=== PATIENT | male | born 1940 | race Caucasian/White ===

== ENCOUNTER 2016-10-02 11:54 | Observation (INO) | payer MEDICARE ==
--- NOTE | 2016-10-02 13:05 | ED Physician Documentation ---
PD HPI FOCAL NEURO - Stated complaint Stated Complaint: MEMORY LOSS/TROUBLE SPEAKING - Chief complaint Chief Complaint: Neuro - History obtained from History obtained from: Patient, Family - History of Present Illness Timing - onset: How many hours ago (3) Timing - duration: Minutes (30) Timing - details: Abrupt onset Severity of deficit: Moderate Weakness: No: Face, Arm, Hand, Leg, Foot, Right, Left Numbness: No: Face, Arm, Hand, Leg, Foot, Right, Left Associated symptoms: No: Headache, Nausea / vomiting, Seizure, Syncope, Fall, Head injury, Chest pain, Neck pain, Back pain, Fever Contributing factors: positive: Atrial fibrillation. negative: Anticoagulated Baseline status: positive: A&OX3, ambulatory, indep Similar symptoms before: Has not had sx before Recently seen: Not recently seen - Additional information Additional information: 30 mins of garbled speech today. Now resolved. Review of Systems Ten Systems: 10 systems reviewed and negative Constitutional: denies: Fever, Chills Eyes: reports: Decreased vision (macular degeneration) Nose: denies: Rhinorrhea / runny nose, Congestion Throat: denies: Sore throat Cardiac: denies: Chest pain / pressure Respiratory: denies: Dyspnea, Cough, Wheezing GI: denies: Abdominal Pain, Nausea, Vomiting, Diarrhea Skin: denies: Rash Musculoskeletal: denies: Neck pain, Back pain Neurologic: denies: Headache PD PAST MEDICAL HISTORY - Past Medical History Cardiovascular: Atrial fibrillation HEENT: Other - Past Surgical History Past Surgical History: Yes Derm: Skin cancer surgery - Present Medications Home Medications: Ambulatory Orders Medication Instructions Recorded Confirmed Aspirin [Aspir 81] 81 mg PO DAILY 01/16/14 10/02/16 - Allergies Allergies/Adverse Reactions: Allergies Allergy/AdvReac Type Severity Reaction Status Date / Time amoxicillin Allergy Rash Verified 10/02/16 12:00 Penicillins Allergy Rash Verified 10/02/16 12:00 - Social History Does the pt smoke?: No Smoking Status: Never smoker Does the pt drink ETOH?: Yes Does the pt have substance abuse?: No - Immunizations Immunizations are current?: Yes Immunizations: TDAP current <10years - POLST Patient has POLST: No PD ED PE NORMAL - Vitals Vital signs reviewed: Yes - General General: Alert and oriented X 3, No acute distress, Well developed/nourished - HEENT HEENT: Moist mucous membranes - Neck Neck: Supple, no meningeal sign - Cardiac Cardiac: RRR, Strong equal pulses - Respiratory Respiratory: No respiratory distress, Clear bilaterally - Abdomen Abdomen: Soft, Non tender, Non distended - Back Back: No spinal TTP - Derm Derm: Warm and dry - Extremities Extremities: No edema - Neuro Neuro: Alert and oriented X 3, forest patrolman 2-12 intact, No motor deficit, No sensory deficit, Normal speech - Psych Psych: Normal mood, Normal affect NIHSS - Time Time: 13:00 - Level of Consciousness Level of consciousness: (0) Alert, Keenly responsive LOC Questions: (0) Answers both Q's correct LOC Commands: (0) Performs both correctly - Gaze Best Gaze: (0) Normal - Visual Visual: (0) No loss - Facial Palsy Facial Palsy: (0) Normal, symmetrical movement - Motor Arms (both separate) Motor Arm (right): (0) No drift Motor Arm (left): (0) No drift - Motor Legs (both separate) Motor Leg (right): (0) No drift Motor Leg (left): (0) No drift - Limb Ataxia Limb Ataxia: (0) Absent - Sensory Sensory: (0) Normal - Best Language Best Language: (0) No aphasia - Dysarthria Dysarthria: (0) Normal - Extinction and Inattention (formally neg Extinction and inattention: (0) No abnormality - Total Score/Results Total Score/Result: 0 Results - Vitals Vitals: Vital Signs - 24 hr 10/02/16 10/02/16 11:56 14:00 Temperature 36.2 C L Heart Rate 101 H 88 Respiratory 19 20 Rate Blood Pressure 179/90 H 136/88 H O2 Saturation 100 97 Oxygen O2 Source Room air - EKG (time done) 1230 Rate: Rate (enter#) (86) Rhythm: Atrial fibrillation [place]: Normal Ischemia: Normal ST segments - Labs Labs: Laboratory Tests 10/02/16 13:55 Urine Color YELLOW Urine Clarity CLEAR Urine pH 6.0 Ur Specific [place] <=1.005 Urine Protein NEGATIVE Urine Glucose (UA) NEGATIVE Urine Ketones NEGATIVE Urine Occult Blood NEGATIVE Urine Nitrite NEGATIVE Urine Bilirubin NEGATIVE Urine Urobilinogen 0.2 (NORMAL) Ur Leukocyte Esterase NEGATIVE Ur Microscopic Review NOT INDICATED Urine Culture Comments NOT INDICATED - Rads (name of study) head w/o CT Radiology: Prelim report reviewed, EMP read contemporaneously, See rad report ( No evidence of an intracranial hemorrhage. Redemonstration of age-appropriate atrophy. Mild decrease density in the periventricular white matter that is nonspecific but most likely represents ischemic changes. ) PD MEDICAL DECISION MAKING - ED course Complexity details: reviewed results, re-evaluated patient, considered differential, d/w patient, d/w internal control consultant ED course: Patient is a 76-year-old male with a history of atrial fibrillation who presents to the emergency department with what appears to be a TIA today. Symptoms have fully resolved. He is only on a baby aspirin daily. Will place the patient in observation for further testing including imaging of the carotids , possible echocardiogram and likely MRI. Discussed the case with Dr. Cobian, hospitalist who accepts. This document was made in part using voice recognition software. While efforts are made to proofread this document, sound alike and grammatical errors may occur. Departure - Departure Disposition: ED Place in Observation Clinical Impression: TIA (transient ischemic attack) Qualifiers: Transient cerebral ischemia type: unspecified Qualified Code(s): G45.9 - Transient cerebral ischemic attack, unspecified Condition: Good
--- NOTE | 2016-10-02 13:53 | CT Preliminary Report ---
Exam: CT Head W/O Impression: No evidence of an intracranial hemorrhage. Redemonstration of age-appropriate atrophy. Mild decrease density in the periventricular white matter that is nonspecific but most likely represe nts ischemic changes. [facility] SITE ID: [id number]
--- NOTE | 2016-10-02 13:55 | CT Report ---
EXAM: CT HEAD EXAM DATE: 10/02/2016 01:31 PM. CLINICAL HISTORY: Aphasia. COMPARISON: 02/28/2013. TECHNIQUE: Multiaxial CT images were obtained from the foramen magnum to the vertex. IV contrast: Non e. Reformats: Coronal. In accordance with CT protocol optimization, one or more of the following dose reduction techniques w ere utilized for this exam: automated exposure control, adjustment of mA and/or KV based on patient s ize, or use of iterative reconstructive technique. FINDINGS: The ventricles and cortical sulci are prominent age appropriate atrophy. Decreased density noted in t he periventricular white matter most likely represents ischemic changes. There is no evidence of a in traparenchymal hemorrhage or extra-axial fluid collection. The visualized mastoid air cells and paran darby sinuses are clear. No depressed skull fracture is seen. Impression: No evidence of an intracranial hemorrhage. Redemonstration of age-appropriate atrophy. Mild decrease density in the periventricular white matter that is nonspecific but most likely represe nts ischemic changes. [facility] Referring Provider Line: [phone] SITE ID: [id number]
[2016-10-02 14:13] LABS: EOSINOPHILS # (AUTO) 0.1 10^3/uL (0.0-0.7); HCT - HEMATOCRIT 47.2 % (42.0-52.0); LYMPHOCYTES # (AUTO) 1.2 10^3/uL (1.5-3.5); MEAN CORPUSCULAR VOLUME 92.4 fL (80.0-94.0); MONOCYTES # (AUTO) 0.4 10^3/uL (0.0-1.0); RED BLOOD COUNT 5.11 10^6/uL (4.70-6.10)
[2016-10-02 14:15] LABS: BASOPHILS % (AUTO) 0.3 %; EOSINOPHILS % (AUTO) 1.8 %; HGB - HEMOGLOBIN 16.8 g/dL (14.0-18.0); LYMPHOCYTES % (AUTO) 18.4 %; MEAN CORPUSCULAR HEMOGLOBIN 32.8 pg (27.0-31.0); MEAN CORPUSCULAR HGB CONC 35.6 g/dL (32.0-36.0); MEAN PLATELET VOLUME 7.6 fL (7.4-11.4); MONOCYTES % (AUTO) 6.7 %; NEUTROPHILS # (AUTO) 4.8 10^3/uL (1.5-6.6); NEUTROPHILS % (AUTO) 72.8 %; NUCLEATED RED BLOOD CELLS AUTO 0.1 /100WBC; RED CELL DISTRIBUTION WIDTH 14.4 % (12.0-15.0); UNCORRECTED WHITE BLOOD COUNT 6.6 x10^3/uL; WHITE BLOOD COUNT 6.6 x10^3/uL (4.8-10.8)
[2016-10-02 14:20] LABS: BILIRUBIN,URINE NEGATIVE (NEGATIVE)
[2016-10-02] MEDS ORDERED: PROCHLORPERAZINE 10 MG/2 ML VIAL IVP PRN (14:21)
[2016-10-02] MEDS ORDERED: SODIUM CHLORIDE FLUSH 0.9% 10 ML SYRINGE IVP PRN (14:21)
[2016-10-02] MEDS ORDERED: oxyCODONE 5 MG TABLET PO PRN (14:21)
[2016-10-02] MEDS ORDERED: ONDANSETRON ODT 4 MG TABLET TL PRN (14:21)
[2016-10-02] MEDS ORDERED: ACETAMINOPHEN 325 MG TABLET PO PRN (14:21)
[2016-10-02] MEDS ORDERED: ZOLPIDEM 5 MG TABLET PO PRN (14:21)
[2016-10-02 14:23] LABS: UA CHARGE (STRIP ONLY) YES; UR CULTURE IF IND NOT INDICATED
[2016-10-02 14:31] LABS: BILIRUBIN,TOTAL 1.8 mg/dL (0.2-1.0); CALCIUM 9.5 mg/dL (8.5-10.3); POTASSIUM 3.8 mmol/L (3.5-5.0); TOTAL PROTEIN 6.9 g/dL (6.7-8.2)
[2016-10-02 14:44] LABS: PLATELET ESTIMATE, MANUAL NORMAL (130-450,000) (NORMAL)
[2016-10-02 14:54] LABS: CHOLESTEROL 239 mg/dL; HDL CHOLESTEROL 60 mg/dL; LDL/HDL RATIO 2.4 (<3.6); TRIGLYCERIDES 171 mg/dL; VLDL CHOLESTEROL 34 mg/dL
--- NOTE | 2016-10-02 15:14 | HISTORY & PHYSICAL EXAMINATION ---
Chief Complaint - Chief Complaint Chief Complaint: unable to speak or think clearly History of Present Illness - Admitted From Admitted From:: emergency department - History Obtained From Records Reviewed: yes History obtained from: patient Exam Limitations: none - History of Present Illness HPI Comment/Other: Patient is a 76-year-old gentleman with a past medical history significant for atrial fibrillation previously on Coumadin which she did not tolerate then switched to Xarelto from which patient got skin reaction and stopped is now only on aspirin, hypertension not on any medications and macular degeneration who presented to the emergency department with a chief complaint of not being able to think or speak clearly. The patient states he was in his normal state of health until around 10 AM on 10/02/2006 when he states he could not think straight. He states he could not remember the names of things and objects. He states he tried to talk but could not get the words out. The patient states that he was alone and went to a meter to see if he was having any facial droop he states that everything looked normal. He also states that he did not have any weakness. He states that when he tried to speak he could not get the words out. He tried calling his family but no one answered. The patient states that the symptoms resolved in about 30 minutes. He states he finally got a hold of his family who were very concerned and told him to go to the emergency department. The patient states that his symptoms have not completely resolved even now he states he still seems to have a difficult time remembering certain words or certain things. He states however he is thinking more clearly. He denies ever having any symptoms like this before. He denies any recent fevers or chills. He also denies any recent illness. He denies any chest pain, shortness of breath or abdominal pain. On presentation to the emergency department the patient was afebrile he was slightly hypertensive and tachycardic but otherwise vitals were within normal limits. The patient's dysarthria seems to have resolved. The patient did not have any obvious focal neurologic deficits on examination. The patient had a CT of his head in the emergency department which did show mild decreased density in the periventricular white matter which is nonspecific but most likely represented ischemic changes. Otherwise the patient had no acute intracranial hemorrhage. The patient's lab work revealed a negative UA. His EKG showed atrial fibrillation. His CBCs and electrolytes were within normal limits. The patient did have an elevated LDL of 145. The patient was placed in observation for TIA. Review of Systems - Constitutional Constitutional: denies: Fatigue, Fever, Chills, Malaise, Weakness, Poor appetite , Diaphoresis, Night sweats, Weight gain, Weight loss, Other - Eyes Eyes: denies: Pain, Irritation, Amaurosis, Blurred vision, Spots in vision, Field loss, Vision loss, Dipolpia, Corrective lenses, Other - Ears, Nose & Throat Ears, Nose & Throat: denies: Ear pain, Hearing loss, Hearing aids, Tinnitus, Vertigo, Nasal pain, Nasal discharge, Nosebleeds, Nasal obstruction, Nasal congestion, Postnasal drainage, Dentures, Sore throat, Hoarseness, Mouth lesions , Bleeding gums, Dental decay, Dental pain, Other - Cardiovascular Cariovascular: denies: Irregular heart rate, Palpitations, Chest pain, Edema, Lightheadedness, Syncope, Exertional dyspnea, Decr. exercise tolerance, Orthopnea, Other - Respiratory Respiratory: denies: Cough, Sputum production, Wheezing, Snoring, Hemoptysis, Orthopnea, SOB at rest, SOB with exertion, Apnea, Stridor, Pleuritic pain, Other - Gastrointestinal Gastrointestinal: denies: Abdominal pain, Abdominal distention, Constipation, Diarrhea, Change in bowel habits, Rectal bleeding, Black stools, Bloody stools, Nausea, Vomiting, Bile emesis, Richar blood emesis, Coffee grounds emesis, Reflux /heartburn, Bloating, Poor appetite, Other - Genitourinary Genitourinary: denies: Dysuria, Frequency, Urgency, Hematuria, Incontinence, Flank pain, Nocturia, Urethral discharge, Sexual dysfunction, Other - Musculoskeletal Musculoskeletal: denies: Muscle pain, Back pain, Muscle aches, Stiffness, Limited range of motion, Muscle weakness, Gout, Joint pain, Joint swelling, Other - Integumentary Integumentary: denies: Rash, Pruritis, Lesions, Dryness, Lumps, Acne, Pigment changes, Nail changes, Hair changes, Other - Neurological Neurological: reports: Memory problems, Other (Dysarthria, inability to think clearly or process clearly) - Psychiatric Psychiatric: denies: Depression, Anxiety, Suicidal, Delusions, Hallucinations, Homicidal, Other - Hematologic/Lymphatic Hematologic/Lymphatic: denies: Anemia, Bruising, Petechiae, Blood clots, Lymphadenopathy, Bleeding tendencies, Recurrent infections, Other History - Past Medical History Cardiovascular: reports: Hypertension (Been told he has hypertension but untreated), Atrial fibrillation Respiratory: reports: None Neuro: reports: None Endocrine/Autoimmune: reports: None GI: reports: None BULK RECEIVER: reports: None : reports: None HEENT: reports: Macular degeneration Psych: reports: None Musculoskeletal: reports: None Derm: reports: Psoriasis MRSA Hx?: No - Past Surgical History Derm: reports: Skin cancer surgery - Family & Social History Family History: Mother: (Healthy of old age), Father: , Other family: Alive and Well (2 daughters both healthy) Family History Comment/Other: No family history of cancer, diabetes, heart disease or stroke Living arrangement: At home Living Situation: With family (Lives on same property as daughter and son in law ) Social History Notes: Lives alone on same property as his daughter and son in law. Is completely independent. 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 He has 2 daughters. - Substance History Use: Uses substance without health or social issues: Alcohol (Rarely drinks wine ) Abuse: Recurrent use of substance despite neg consequences: NONE Dependence: Experiences withdrawal or developed tolerances: NONE Tobacco Details: Other (Smoked 1PPD of cigarettes off and on for 26 years.) - POLST Patient has POLST: No POLST Status: Full Code Meds/Allgy - Home Medications Home Medications: Ambulatory Orders Medication Instructions Recorded Confirmed Aspirin [Aspir 81] 81 mg PO DAILY 01/16/14 10/02/16 - Allergies Allergies/Adverse Reactions: Allergies Allergy/AdvReac Type Severity Reaction Status Date / Time amoxicillin Allergy Rash Verified 10/02/16 12:00 Penicillins Allergy Rash Verified 10/02/16 12:00 Exam - Vital Signs Reviewed Vital Signs: Yes Vital Signs: Vital Signs x48h Temp Pulse Resp BP Pulse Ox 10/02/16 14:00 88 20 136/88 H 97 10/02/16 11:56 36.2 C L 101 H 19 179/90 H 100 - Physical Exam General Appearance: positive: No acute distress, Alert Eyes Bilateral: positive: Normal inspection, PERRL, EOMI, No lid inflammation, Conjunctivae nml, No scleral icterus ENT: positive: ENT inspection nml, Pharynx nml, Dry mucous membranes. negative : Purulent nasal drainage, Pharyngeal erythema, Oral lesions Neck: positive: Nml inspection, Thyroid nml, No JVD, Trachea midline. negative : Thyromegaly, Lymphadenopathy (R), Lymphadenopathy (L) Respiratory: positive: Chest non-tender, No respiratory distress, Breath sounds nml. negative: Wheezes, Rales, Rhonchi Cardiovascular: positive: No murmur, No gallop, Irregularly irregular, Tachycardia Peripheral Pulses: positive: 2+ Abdomen: positive: Non-tender, No organomegaly, Nml bowel sounds, No distention. negative: Guarding, Rebound Back: positive: Nml inspection. negative: CVA tenderness (R), CVA tenderness (L ) Skin: positive: Color nml, No rash, Warm Extremities: positive: Non-tender, Full ROM, Nml appearance, No pedal edema Neurologic/Psychiatric: positive: Oriented x3, CN's nml (2-12), Motor nml, Sensation nml, Mood/affect nml, Other (Forgot a few words here and there during exam but otherwise processed and answered questions appropriately.) Conclusion/Plan - Problem List (1) TIA (transient ischemic attack) Conclusion/Plan: Patient presented with dysarthria at home for 30 mins and difficulty with organizing thoughts in his head. He stated he could not get words out. He took an ASA at home prior to arrival. His symptoms resolved after 30 mins. They were almost completely resolved on arrival aside from some difficulty remembering some words. CT head showed no bleed but did show an area of mild decrease density in the periventricular white matter than is non specific but most likely represents ischemic changes Patient has history of A fib but not on any anticoags just ASA. Was previously on coumadin but did not tolerate well. Then xarelto from which he had a skin reaction. Patient will need to start anticoagulation prior to discharge if no bleeding seen on MRI. Plan: Aspirin Lipitor CTA head and neck MRI brain Echo [facility] Qualifiers: Transient cerebral ischemia type: unspecified Qualified Code(s): G45.9 - Transient cerebral ischemic attack, unspecified (2) Atrial fibrillation Conclusion/Plan: With TIA today his CHADS2 score is now 4 as he does also have diagnosis of hypertension but has never been on medications Currently only on ASA and no rate control meds or anticoags Took warfarin in past and states he had insomnia secondary to it He then tried xarelto which caused a skin reaction he has been on ASA alone for years now Currently rate controlled Chronic A fib EKG shows a fib Plan: Echo Start anticoagulation with coumadin prior to discharge as patient is agreeable to try coumadin again if MRI and CTA negative for bleeding Rate is controlled without any meds Patient may benefit from metoprolol for BP and rate control Qualifiers: Atrial fibrillation type: chronic Qualified Code(s): I48.2 - Chronic atrial fibrillation (3) Hypertension Conclusion/Plan: BP elevated on presentation This could be secondary to TIA but according to patient he has been told he had hypertension in the past but has never taken meds for it Will monitor BP for now Given his history of A fib may benefit from metoprolol both for HTN and rate control for a fib (4) Prophylactic use of low molecular weight heparin for venous thromboembolism Conclusion/Plan: On lovenox - Lab Results Lab results reviewed: Yes [place] Bones: 10/02/16 13:55 10/02/16 13:55 - Diagnostic Imaging Results Diagnostic Imaging Results: positive: Final report reviewed - EKG Results EKG Interpreted Independently: Yes EKG Comparison: Other (Atrial Fibrillation with low voltage) Issues/Core Measures - Anticipated LOS Anticipated Stay Length: Less than 2 midnights - DVT/VTE - Prophylaxis VTE/DVT Prophylaxis med ordered at admit?: Yes
[2016-10-02] MEDS ORDERED: IOPAMIDOL-300 100 ML VIAL IVP ONE (15:57)
[2016-10-02] MEDS: SODIUM CHLORIDE 0.9% 1,000 ML IV SCH (16:02)
--- NOTE | 2016-10-02 16:56 | CT Report ---
EXAM: CT ANGIOGRAM HEAD AND NECK EXAM DATE: 10/02/2016 03:43 PM. CLINICAL HISTORY: 76-year-old with TIA COMPARISON: CT head 10/02/2016, 02/28/2013. TECHNIQUE: 1. CTA Head and Neck: Using a multidetector scanner, high-resolution axial images were acquired from the thoracic inlet through the vertex following rapid infusion of intravenous contrast. Multiplanar M IP reformats were reconstructed. 2. Post-contrast head CT: 5 mm contiguous axial sections were obtained from the foramen magnum to jacqueline jerson was following CT angiogram. IV Contrast: 100 cc [id number] protocol optimization, one or more of the following dose reduction techniques w ere utilized for this exam: automated exposure control, adjustment of mA and/or KV based on patient s ize, or use of iterative reconstructive technique. FINDINGS: CT ANGIOGRAM HEAD AND NECK: There is normal three-vessel takeoff of the great vessels. There is atherosclerotic calcification see n involving the aortic arch. RIGHT: Common and Internal Carotid Arteries: Patent without significant stenosis. There is moderate atheros clerotic plaque at the bifurcation and siphon. Stenosis at the bifurcation by NASCET criteria: 0 perc ent. No evidence of dissection. Atherosclerotic calcification seen involving cavernous ICA segment wi th no significant stenosis. No evidence of aneurysm along the intracranial ICA. External Carotid Artery: Unremarkable. Vertebral Artery: Patent without significant stenosis. No evidence of dissection. Anterior Cerebral Artery: Patent without significant stenosis, aneurysm, or vascular malformation. Middle Cerebral Artery: Patent without significant stenosis, aneurysm, or vascular malformation. Posterior Cerebral Artery: Patent without significant stenosis, aneurysm, or vascular malformation. Posterior Communicating Artery: Not definitively seen. No aneurysm. LEFT: Common and Internal Carotid Arteries: Patent without significant stenosis. There is moderate atheros clerotic plaque at the bifurcation and siphon. Stenosis at the bifurcation by NASCET criteria: 0 perc ent. No evidence of dissection. Atherosclerotic calcifications involving the cavernous ICA segment wi th no stenosis. No evidence of aneurysm along the intracranial ICA. External Carotid Artery: Unremarkable. Vertebral Artery: Patent without significant stenosis. No evidence of dissection. Anterior Cerebral Artery: Patent without significant stenosis, aneurysm, or vascular malformation. Middle Cerebral Artery: Patent without significant stenosis, aneurysm, or vascular malformation. Posterior Cerebral Artery: Patent without significant stenosis, aneurysm, or vascular malformation. Posterior Communicating Artery: Not definitively seen. No aneurysm. CENTRAL: Anterior Communicating Artery: Patent. No aneurysm. Basilar Artery: Patent without significant stenosis. No aneurysm. DURAL VENOUS SINUSES AND MAJOR CENTRAL VEINS: Patent. OTHER: Visualized soft tissues are unremarkable. Lung apices are clear. No evidence of acute fracture . There is straightening of the normal cervical lordosis. There appears to be 1-2 mm ventral subluxat ion of C4 on C5. There is fusion of the C5, C6, and C7 vertebral bodies. POST-CONTRAST HEAD: Parenchyma: No acute parenchymal hemorrhage, mass, or midline shift. There is mild bilateral areas of white matter hyperattenuation seen that appear similar to 02/28/2013. No definite CT evidence of acu te infarct. No abnormal postcontrast enhancement. Ventricles and Extra-axial Spaces: Normal. No extra-axial fluid collections or hemorrhage. Orbits and Sinuses: Orbits are normal. Paranasal sinuses and mastoid air cells are clear. Extracranial Soft Tissues and Bones: Extracranial soft tissues are unremarkable. No fractures. No abnormal enhancement. IMPRESSION: 1. No acute intracranial abnormality. Specifically, no evidence of acute infarct, hemorrhage, mass le srinivasan, hydrocephalus, or abnormal postcontrast enhancement. 2. There is atherosclerotic calcification seen involving bilateral carotid bulbs with no significant stenosis. Otherwise the vessels of the neck demonstrate no significant stenosis or dissection. 3. There is atherosclerotic calcifications involving bilateral cavernous ICA segments with no signifi cant stenosis seen. Otherwise intracranial vasculature demonstrates no significant stenosis, aneurysm , or vascular malformation. 4. Fusion of the C5, C6, and C7 vertebral bodies. [facility] Referring Provider Line: [phone] SITE ID: [id number]
[2016-10-02] MEDS ORDERED: ATORVASTATIN 40 MG TABLET PO SCH (21:00)
[2016-10-02] MEDS: SODIUM CHLORIDE FLUSH 0.9% 10 ML SYRINGE IVP SCH (21:53)
[2016-10-03] MEDS: SODIUM CHLORIDE 0.9% 1,000 ML IV SCH (01:13)
[2016-10-03 05:45] LABS: BASOPHILS % (AUTO) 0.4 %; EOSINOPHILS # (AUTO) 0.2 10^3/uL (0.0-0.7); EOSINOPHILS % (AUTO) 3.3 %; HCT - HEMATOCRIT 49.8 % (42.0-52.0); HGB - HEMOGLOBIN 17.1 g/dL (14.0-18.0); LYMPHOCYTES # (AUTO) 1.7 10^3/uL (1.5-3.5); LYMPHOCYTES % (AUTO) 29.2 %; MEAN CORPUSCULAR HGB CONC 34.3 g/dL (32.0-36.0); MEAN CORPUSCULAR VOLUME 93.3 fL (80.0-94.0); MEAN PLATELET VOLUME 7.9 fL (7.4-11.4); MONOCYTES # (AUTO) 0.5 10^3/uL (0.0-1.0); MONOCYTES % (AUTO) 7.8 %; NEUTROPHILS # (AUTO) 3.5 10^3/uL (1.5-6.6); NEUTROPHILS % (AUTO) 59.3 %; NUCLEATED RED BLOOD CELLS AUTO 0.1 /100WBC; RED BLOOD COUNT 5.34 10^6/uL (4.70-6.10); RED CELL DISTRIBUTION WIDTH 14.1 % (12.0-15.0); UNCORRECTED WHITE BLOOD COUNT 5.8 x10^3/uL; WHITE BLOOD COUNT 5.8 x10^3/uL (4.8-10.8)
[2016-10-03 05:54] LABS: INR 1.1 (0.8-1.2)
[2016-10-03 06:04] LABS: ALBUMIN/GLOBULIN RATIO 1.9 (1.0-2.2); BILIRUBIN,TOTAL 1.7 mg/dL (0.2-1.0); CALCIUM 9.2 mg/dL (8.5-10.3); CREATININE 0.9 mg/dL (0.6-1.2); TOTAL PROTEIN 6.7 g/dL (6.7-8.2)
[2016-10-03] MEDS: SODIUM CHLORIDE FLUSH 0.9% 10 ML SYRINGE IVP SCH (06:05)
[2016-10-03] MEDS ORDERED: PANTOPRAZOLE 40 MG TABLET PO SCH (07:00)
[2016-10-03 07:54] VITALS: BP 161/87
[2016-10-03] MEDS ORDERED: MULTIVITAMIN TABLET PO SCH (08:00)
[2016-10-03] MEDS ORDERED: ENOXAPARIN 40 MG/0.4 ML SYRINGE SUBQ SCH (09:00)
[2016-10-03] MEDS ORDERED: POLYETHYLENE GLYCOL 3350 17 GM PACKET PO SCH (09:00)
[2016-10-03] MEDS ORDERED: ASPIRIN EC 81 MG TABLET PO SCH (09:00)
--- NOTE | 2016-10-03 10:17 | Discharge Plan ---
Discharge Plan Disposition: 01 Home, Self Care Condition: Fair Prescriptions: Warfarin [Coumadin] 5 mg PO 1400 #30 tablet Atorvastatin [Lipitor] 80 mg PO QPM #30 tablet Diet: Low Sodium Activity Restrictions: No Restrictions Shower Restrictions: No Driving Restrictions: No Weight Bearing: Full Weight Additional Instructions or Follow Up instructions: You presented to the hospital with what appears to have been a transient ischemic attack. Your CT scans showed that you did not have an acute stoke or bleed. The cause of this TIA is thought to be a small emboli due to your atrial fibrillation. You are at risk for more of these types of attacks in the future given your atrial fibrillation and that is why we have prescribed you coumadin to take daily to thin your blood and hopefully prevent an attack like this in the future. I am recommending that you also continue the baby aspirin daily and also prescribing you a statin called lipitor that I recommend you take as it will also reduce your risk of strokes in the future. Your blood pressure was elevated during this hospitalization and it may have been secondary to you being in the hospital. I am recommending that you check your blood pressures at home over the next week and write down the readings so you can take the log with you next time you see your PCP. You also had several pauses while you were in the hospital. These occurred while you were sleeping and could be due to skipped beats in the setting of your atrial fibrillation but I do recommend that you see a plant taxonomist in the near future regarding these pauses and your a fib. Please follow up with your PCP in the next week and have your INR checked next week. No Smoking: If you smoke, Please STOP! Call for help.
--- NOTE | 2016-10-03 12:03 | DISCHARGE SUMMARY ---
DATE OF ADMISSION: 10/02/2016 DATE OF DISCHARGE: 10/03/2016 PRIMARY CARE PHYSICIAN: Ambar Wick MD DISCHARGING PHYSICIAN: Tomy Cobian MD DISCHARGE DIAGNOSES 1. Transient ischemic attack. 2. Atrial fibrillation. 3. Hypertension. 4. Prophylactic use of low molecular weight heparin for venous thromboembolism prophylaxis. DISCHARGE MEDICATIONS 1. Aspirin 81 mg p.o. daily. 2. Coumadin 5 mg p.o. daily. 3. Lipitor 80 mg p.o. q.p.m. HOSPITAL COURSE: The patient is a very pleasant 76-year-old gentleman with a past medical history significant for atrial fibrillation. He was previously on Coumadin and Xarelto, but could not tolerate either medication. Therefore, is not on any anticoagulation and just on aspirin alone. He also has history of hypertension, but has never been on medications, and macular degeneration. He presents to the emergency department with a chief complaint of not being able to think or speak clearly. The patient stated that he had symptoms that lasted for about half an hour where he could not remember the names of objects and he could not get his words out or think clearly. The patient states that symptoms eventually resolved and by the time he arrived in the emergency department he was able to speak clearly, but was still forgetting some common words that he normally remembered. The patient's symptoms had completely resolved by the time of discharge. He did have imaging studies while he was hospitalized. He underwent a CT head and CT angio of the head and neck, none of which showed any acute process. The patient underwent an EKG, which did show that the patient was in atrial fibrillation, and an echocardiogram which did not show any mass or thrombus but did reveal severe left and right atrial enlargement as well as moderate tricuspid regurgitation. He did have a normal ejection fraction. On telemetry, the patient did have several 2-3 second pauses while he was sleeping at night. The patient was discharged home in stable condition the following morning. He was prescribed Coumadin as he will start this for his atrial fibrillation. We did not bridge him onto Coumadin as his CHADS2 score was only 3 , and he is not a high risk patient. The patient will need to follow up with his primary care physician. He will get his INR drawn later this week. He also likely needs referral to Cardiology for his atrial fibrillation and the pauses seen here in the hospital. The patient also was found to be hypertensive during the hospitalization and will need further evaluation of the hypertension. The patient will check his blood pressures at home, keep a log, and take it to his primary care physician. The patient also was started on Lipitor. He was not so sure about taking Lipitor as he has had some difficulty with statins in the past , and is not sure if he believes in the evidence regarding statin therapy. The patient was otherwise discharged in stable condition. He did not need any physical therapy, he was strong and independent, and will return home to live independently. PHYSICAL EXAMINATION AT DISCHARGE VITAL SIGNS: Temperature 36.3, heart rate 75, blood pressure 161/87, respiratory rate 19, O2 saturation 100% on room air. GENERAL: The patient did not appear to be in any acute distress. He is resting comfortably, alert and able to answer all my questions appropriately. HEENT: Pupils are equal and reactive to light. Extraocular muscles are intact. Mucous membranes are moist. There is no conjunctival pallor or scleral icterus noted. NECK: Supple. No thyromegaly, no JVD. No carotid bruit. Trachea is midline. LYMPH NODES: There is no cervical or axillary lymphadenopathy noted. CARDIOVASCULAR: S1, S2, irregularly irregular rhythm. No murmurs, rubs, or gallops. LUNGS: Clear to auscultation bilaterally. No wheezes, rhonchi, or crackles. ABDOMEN: Soft, nontender, nondistended. Bowel sounds are present in all 4 quadrants. EXTREMITIES: No lower extremity edema. Peripheral pulses are palpable. There is no cyanosis or clubbing. SKIN: The patient does have some psoriasis on his lower extremities and does have a number of small macular lesions throughout his body. These are chronic. Otherwise, there is no new skin rashes, lesions, cellulitis or abscesses. NEUROLOGIC: The patient is alert, oriented x3. Cranial nerves 2-12 are grossly intact. Strength is grossly normal. Sensations are intact. The patient does not have any dysarthria or gait ataxia. LABORATORY: WBC is 5.8, hemoglobin 17.1, hematocrit 49.8, platelet count 193. INR 1.1. Sodium 141, potassium 4.0, chloride 104, carbon dioxide 29, BUN 19, creatinine 0.9, glucose 89, calcium 9.2, total bilirubin 1.7, AST 20, ALT 24, alkaline phosphatase 62. Total protein 6.7, albumin 4.4, and LDL 145. UA negative. IMAGING 1. CT head, impression: No evidence of any acute intracranial hemorrhage. Redemonstration of age appropriate atrophy, mild increased density in the periventricular white matter that is nonspecific but mostly likely represents ischemic changes. 2. CT angio of the head and neck, impression: 1) No acute intracranial abnormality, specifically no evidence of acute infarct, hemorrhage, mass lesion , hydrocephalus or abnormal postcontrast enhancement. 2) There is atherosclerotic calcification seen involving bilateral carotid bulbs with no significant stenosis. Otherwise, the vessels of the neck demonstrate no significant stenosis or dissection. 3) There are atherosclerotic calcifications involving bilateral cavernous ICA segments with no significant stenosis seen. Otherwise, intracranial vasculature demonstrates no significant stenosis, aneurysm or vascular malformation. 4) Fusion of C5, C6 and C7 vertebral bodies. FOLLOWUP/RECOMMENDATIONS: The patient is being discharged home on aspirin, Coumadin and Lipitor as he did have a TIA and does have a history of atrial fibrillation. It is suspected that he had a small embolic TIA, which has now resolved. The patient was given information on Coumadin and was counseled on its use. The patient will start Coumadin without bridge at this time as he has a CHADS2 score of 3. The patient will follow up with his primary care physician within the next week. He is going to get his INR checked later this week and will need his dose adjusted by his PCP. The patient also was started on Lipitor prior to discharge and continued on his home dose of aspirin. The patient will also need followup with Cardiology for his atrial fibrillation. Also, he did have some pause while he was hospitalized; however, these occurred while he was sleeping. The patient will need followup for his hypertension. He was hypertensive during the hospitalization, but he will keep a log of his blood pressures at home and take them with him to his primary care physician. The patient was discharged in stable condition and will follow up with his PCP in the upcoming week. Greater than 30 minutes were spent on dictation. JOB #: [id number] EXT JOB #:[id number] BRYAN
== END 2016-10-03 10:50 | disposition home or self-care (01) ==
LOC: ED 11:54 → MS 14:21
PROVIDERS: ADMIT Internal Medicine; ATTEND Internal Medicine
DX: G45.9 Transient cerebral ischemic attack, unspecified (principal); I48.2 Chronic atrial fibrillation; I10 Essential (primary) hypertension; Z79.82 Long term (current) use of aspirin; Z85.828 Personal history of other malignant neoplasm of skin; Z87.891 Personal history of nicotine dependence
CPT/HCPCS: 36415; 70450; 70496; 70498; 80053; 80061; 81003; 83690; 85025; 85610; 93005; 93010; 93306; 96360; 96361; 96372; 99284; 99285; A9270; G0378; J1650; Q9967; 81001; 87086

== ENCOUNTER 2017-09-20 06:13 | Outpatient (CLI) | payer MEDICARE ==
[2017-09-20] MEDS ORDERED: IOPAMIDOL-300 100 ML VIAL ONE (06:29)
[2017-09-20] MEDS ORDERED: IOPAMIDOL-300 50 ML VIAL ONE (06:29)
--- NOTE | 2017-09-20 14:25 | CT Report ---
CT ABDOMEN AND PELVIS WITH CONTRAST: 09/20/2017 CLINICAL INDICATION: Recurrent prostate cancer. TECHNIQUE: Axial CT images of the abdomen and pelvis were obtained with 100 mL Isovue 300 intravenously as well as oral contrast. COMPARISON: 07/28/2015. FINDINGS: Limited evaluation of the lung bases is unremarkable. Abdomen: The liver, spleen, pancreas and adrenal glands are unremarkable. The kidneys demonstrate cortical cysts. No hydronephrosis or solid renal lesion is appreciated. The gallbladder is not dilated. No bowel dilatation, free gas, or free fluid is present. No abdominal adenopathy is seen. Pelvis: Brachytherapy seeds are noted in the prostate bed. Colonic diverticulosis is present, without CT evidence of diverticulitis. No pelvic adenopathy or free fluid is present. Osseous structures demonstrate degenerative changes. IMPRESSION: NO DEFINITE EVIDENCE OF METASTATIC DISEASE. DIVERTICULOSIS, WITHOUT CT EVIDENCE OF DIVERTICULITIS. In accordance with CT protocol optimization, one or more of the following dose reduction techniques were utilized for this exam: automated exposure control, adjustment of mA and/or KV based on patient size, or use of iterative reconstructive technique. TD: 09/20/2017 14:23 BRYAN
[2017-09-21] MEDS ORDERED: IOPAMIDOL-300 100 ML VIAL IVP ONE (10:39)
[2017-09-21] MEDS ORDERED: IOPAMIDOL-300 50 ML VIAL PO ONE (10:39)
== END 2017-09-20 06:14 | disposition home or self-care (01) ==
LOC: DI 06:13
PROVIDERS: ATTEND Internal Medicine Hematology & Oncology
DX: C61 Malignant neoplasm of prostate (principal)
CPT/HCPCS: 74177; Q9967

== ENCOUNTER 2017-09-21 11:10 | Outpatient (CLI) | payer MEDICARE ==
--- NOTE | 2017-09-21 17:17 | Nuclear Medicine Report ---
EXAM: BONE SCAN EXAM DATE: 09/21/2017 04:13 PM. CLINICAL HISTORY: PROSTATE CANCER. COMPARISON: Bone scan 07/29/2015. Abdomen/pelvis CT 09/20/2017. TECHNIQUE: Following the intravenous administration of 32.2 mCi of technetium 99m MDP and an appropri ate delay, a whole-body scan was performed in anterior and posterior projections. Site-specific spot views of the region of interest were obtained in various projections. FINDINGS: Exam Quality: Normal overall osseous radiotracer uptake. Physiological tracer uptake in bilateral col lecting systems. Skull: No focal uptake. Thorax: No focal lesions in ribs or sternum. Pelvis: No focal lesions. Spine: Stable focus of right-sided degenerative endplate uptake at L4-L5. Small foci of degenerative endplate uptake in the lower thoracic spine. IMPRESSION: Stable bone scan, no convincing scintigraphic evidence of skeletal metastatic disease. [facility] Referring Provider Line: [phone] SITE ID: [id number]
== END 2017-09-21 11:11 | disposition home or self-care (01) ==
LOC: DI 11:10
PROVIDERS: ATTEND Internal Medicine Hematology & Oncology
DX: C61 Malignant neoplasm of prostate (principal)
CPT/HCPCS: 78306; A9503

== ENCOUNTER 2018-09-25 08:07 | Outpatient (CLI) | payer MEDICARE ==
[2018-09-25] MEDS ORDERED: IOVERSOL 320 50 ML VIAL ONE (08:20)
[2018-09-25] MEDS ORDERED: IOVERSOL 320 100 ML VIAL IVP ONE ×2 (08:20→12:09)
[2018-09-25] MEDS ORDERED: IOVERSOL 320 50 ML VIAL PO ONE (12:10)
--- NOTE | 2018-09-25 12:51 | CT Report ---
Reason: PROSTATE CA Procedure Date: 09/25/2018 Accession Number: [id number] / [id number] Procedure: CT - Abdomen/Pelvis W CPT Code: FULL RESULT: EXAM: CT ABDOMEN AND PELVIS EXAM DATE: 09/25/2018 09:52 AM. CLINICAL HISTORY: Prostate cancer. COMPARISONS: ABDOMEN/PELVIS W/ 09/20/2017 7:20 AM. TECHNIQUE: Routine helical CT imaging was performed through the abdomen and pelvis. IV contrast: 100 mL of Optiray 320. Enteric contrast: 50 mL of Optiray 320. Reconstructions: Coronal and sagittal. In accordance with CT protocol optimization, one or more of the following dose reduction techniques were utilized for this exam: automated exposure control, adjustment of mA and/or KV based on patient size, or use of iterative reconstructive technique. FINDINGS: Lung Bases: Unremarkable. Liver: Normal. No masses. Gallbladder/Bile Ducts: Unremarkable. Spleen: Normal. Pancreas: Normal. Adrenal Glands: Normal. Kidneys: Normal. No masses or hydronephrosis. Stable bilateral simple appearing cortical cysts, both lower poles. Peritoneal Cavity/Bowel: Normal. No free fluid, free air or adenopathy. No masses or acute inflammatory process. The appendix is well visualized and normal. Pelvic Organs: Stable pattern of radiation seeds within the prostatic bed. No evidence of connor prostatic mass or adenopathy. The bladder and visualized pelvic organs are within normal limits. Vasculature: No aneurysms or other significant abnormality. Bones: No significant abnormality. Other: None. IMPRESSION: Stable exam findings. No CT evidence of metastatic disease. [facility]
--- NOTE | 2018-09-25 16:32 | Nuclear Medicine Report ---
Reason: PROSTATE CA Procedure Date: 09/25/2018 Accession Number: [id number] / [id number] Procedure: NM - Bone Whole Body CPT Code: FULL RESULT: EXAM: BONE SCAN EXAM DATE: 09/25/2018 02:21 PM. CLINICAL HISTORY: PROSTATE CA. COMPARISON: BONE SCAN 09/21/2017 2:33 PM ABDOMEN/PELVIS W/ 09/25/2018 9:52 AM. TECHNIQUE: Following the intravenous administration of 28.6 mCi of technetium 99m MDP and an appropriate delay, a whole-body scan was performed in anterior and posterior projections. Site-specific spot views of the region of interest were obtained in various projections. FINDINGS: Normal renal radiotracer uptake and bladder activity. Normal soft tissue activity. Overall normal osseous uptake. Mild thoracolumbar scoliosis. Similar mild multilevel thoracic, lumbar spinal uptake, likely degenerative. New/increased mild-moderate focal uptake at the lateral right humeral head, indeterminate. No suspicious focal uptake. IMPRESSION: 1. New/increased mild-moderate focal uptake at the lateral right humeral head, indeterminate. 2. Otherwise no convincing scintigraphic evidence of osseous metastatic disease. [facility]
== END 2018-09-25 08:08 | disposition home or self-care (01) ==
LOC: DI 08:07
PROVIDERS: ATTEND Internal Medicine Hematology & Oncology
DX: C61 Malignant neoplasm of prostate (principal)
CPT/HCPCS: 74177; 78306

== ENCOUNTER 2019-09-28 12:26 | Emergency (ER) | payer MEDICARE ==
--- NOTE | 2019-09-28 14:47 | ED Physician Documentation ---
PD HPI SKIN - Stated complaint Stated Complaint: M - Chief complaint Chief Complaint: General - History obtained from History obtained from: Patient (79-year-old gentleman who has a history of conservatively managed prostate cancer complains of ongoing rectal pain for years which has been worse over the last couple of days. He says it is better if he puts a cloth between his buttock cheeks. It was worse last night. His bowel movements have been fairly normal. He also notes about a 6-week history of mildly itchy rash mostly to the trunk and legs. He has been trying topical miconazole cream without relief.) Review of Systems Constitutional: denies: Fever, Chills, Fatigue GI: denies: Abdominal Pain, Abdominal Swelling, Nausea, Vomiting, Constipation, Diarrhea PD PAST MEDICAL HISTORY - Past Medical History Past Medical History: Yes Cardiovascular: Atrial fibrillation Respiratory: None Endocrine/Autoimmune: None GI: None A&P TECHNICIAN: None : None HEENT: Other Psych: None Musculoskeletal: None Derm: Psoriasis - Past Surgical History Past Surgical History: Yes Derm: Skin cancer surgery - Present Medications Home Medications: Ambulatory Orders Medication Instructions Recorded Confirmed Ascorbic Acid [Vitamin C] 1 cap PO DAILY 09/05/17 10/02/18 Cholecalciferol (Vitamin D3) 1 cap PO DAILY 09/05/17 10/02/18 [Vitamin D3] Cyanocobalamin (Vitamin B-12) 1 cap PO DAILY 09/05/17 10/02/18 [Vitamin B-12] Lutein 1 cap PO DAILY 09/05/17 10/02/18 Magnesium 400 mg PO DAILY 09/05/17 10/02/18 Warfarin [Coumadin] 5 mg PO DAILY 09/05/17 10/02/18 Fluconazole [Diflucan] 150 mg PO Q7D #4 tablet 09/28/19 Lidocaine [Anecream] 5 gm TP QID #2 cream..g. 09/28/19 - Allergies Allergies/Adverse Reactions: Allergies Allergy/AdvReac Type Severity Reaction Status Date / Time amoxicillin Allergy Rash Verified 09/28/19 12:29 Penicillins Allergy Rash Verified 09/28/19 12:29 - Social History Does the pt smoke?: No Smoking Status: Never smoker Does the pt drink ETOH?: Yes Does the pt have substance abuse?: No - Immunizations Immunizations are current?: Yes Immunizations: TDAP current <10years - POLST Patient has POLST: No POLST Status: Full Code PD ED PE NORMAL - Vitals Vital signs reviewed: Yes - General General: Alert and oriented X 3, No acute distress - Cardiac Cardiac: Other (He is in atrial fibrillation) - Abdomen Abdomen: Non tender - Rectal Rectal: Other (There is some skin tags about the rectum, no tenderness or swelling noted.) - Derm Derm: Other (He has diffuse nonspecific rash that certainly could be candidal, it seems to spare under where his underwear would be and affects the thighs and trunk, spares the neck and face.) - Neuro Neuro: Alert and oriented X 3, Normal speech Results - Vitals Vitals: Vital Signs - 24 hr 09/28/19 09/28/19 09/28/19 12:29 12:34 14:27 Temperature 36.5 C Heart Rate 111 H 111 H 99 Respiratory 17 17 16 Rate Blood Pressure 147/86 H 147/86 H 155/82 H O2 Saturation 100 100 100 Oxygen O2 Source Room air PD MEDICAL DECISION MAKING - ED course ED course: 79-year-old gentleman with what sounds like an exacerbation of proctalgia fugax, there is no evidence of infection at this juncture, he did not want to try amitriptyline or pain medications. We settled on topical lidocaine. He also has a rash that could be fungal but is fairly nonspecific. He did not want to try steroids. We will trial Diflucan pending dermatology follow-up. Departure - Departure Disposition: 01 Home, Self Care Clinical Impression: Rash and nonspecific skin eruption, Proctalgia fugax Atrial fibrillation Qualifiers: Atrial fibrillation type: longstanding persistent Qualified Code(s): I48.11 - Longstanding persistent atrial fibrillation Condition: Good Record reviewed to determine appropriate education?: Yes Instructions: ED Candidiasis Cutaneous Follow-Up: [facility] [Provider Group] Prescriptions: Fluconazole [Diflucan] 150 mg PO Q7D #4 tablet Lidocaine [Anecream] 5 gm TP QID #2 cream..g. Comments: As far as the rectal pain goes, I am prescribing lidocaine that you can use topically. Return if it worsens. Follow-up with your primary care physician for recheck. For the rash, this looks most consistent with a fungal rash. We are trying the fluconazole oral tablet since the topical medication did not work. I recommend following up with the residential energy auditor as soon as possible. Call them for an appointment today.
[2019-09-28 15:05] VITALS: BP 165/100
== END 2019-09-28 15:05 | disposition home or self-care (01) ==
LOC: ED 12:26
DX: K59.4 Anal spasm (principal); R21 Rash and other nonspecific skin eruption; I48.11 Longstanding persistent atrial fibrillation; Z79.01 Long term (current) use of anticoagulants
CPT/HCPCS: 99282; 99284